=== PATIENT | male | born 1970 | race Two or more races ===

== ENCOUNTER 2019-09-06 18:57 | Emergency (ER) | payer OTHER ==
[~2019-09-06] VITALS: Ht 172.7 cm; Wt 94.8 kg
[2019-09-06] MEDS ORDERED: TRICOR145 MG (19:28)
== END 2019-09-06 23:43 | disposition home or self-care (01) ==
LOC: ER 18:57
DX: R42 Dizziness and giddiness (principal); M54.2 Cervicalgia